=== PATIENT | male | born 1955 | race Caucasian/White ===

== ENCOUNTER 2021-11-19 19:22 | Emergency (ER) | payer MEDICARE, BC ==
[2021-11-19] MEDS ORDERED: Acetaminophen/HYDROcodone 325-5 MG Tab PO ONE (19:50)
[2021-11-19] MEDS ORDERED: Ondansetron 4 MG Tab.DIS PO ONE (19:50)
== END 2021-11-19 21:30 | disposition home or self-care (01) ==
LOC: JD.ED 19:22
DX: S52.572A Other intraarticular fracture of lower end of left radius, initial encounter for closed fracture (principal); I10 Essential (primary) hypertension; W11.XXXA Fall on and from ladder, initial encounter
CPT/HCPCS: 29125; 73080; 73090; 73110; 99283; A9270

== ENCOUNTER 2024-08-15 18:18 | Emergency (ER) | payer MEDICARE, BC ==
[2024-08-15] MEDS: Glucagon,Human Recombinant 1 MG Vial IVPUSH ONE ×2 (18:39→19:33)
[2024-08-15] MEDS: LORazepam 2 MG/ML SDV IVPUSH ONE ×2 (18:39→19:34)
== END 2024-08-15 21:00 | disposition left against medical advice (07) ==
LOC: JD.ED 18:18
DX: K56.49 Other impaction of intestine (principal); I10 Essential (primary) hypertension; E03.9 Hypothyroidism, unspecified
CPT/HCPCS: 71045; 96374; 96375; 96376; 99284; J1610; J2060